=== PATIENT | male | born 1940 | race Caucasian/White ===

== ENCOUNTER 2020-09-15 12:58 | Inpatient (IN) | payer MEDICARE, OTHER, SELFPAY ==
[2020-09-15] VITALS (16 sets, daily range): BP systolic 108–147; BP diastolic 62–100; PULSE 77–107; RESP 13–20; TEMP 36–36.8; O2SAT 95–100; BMI 28.8
--- NOTE | ~2020-09-15 | CT_ITS ---
EXAMINATION: CT chest abdomen pelvis wo con DATE: 09/15/2020 17:46 INDICATION: Brain metastases. TECHNIQUE: Computed tomography (CT) of the chest, abdomen, and pelvis was performed without intraveno us contrast. Automated exposure control and iterative reconstruction technique were employed. The dos e-length product was 1312.69 mGy-cm. COMPARISON: None FINDINGS: CHEST CT: 2.5 cm spiculated mass in the right upper lobe. There are multiple pleural-based masses along the per iphery of the right lung the largest posteriorly at the right lower lobe measuring up to 8.6 x 4.7 cm . There are also bulky right hilar and mediastinal lymph nodes suspicious for metastatic disease. Mil d emphysema. No pneumonia. Small right pleural effusion. Heart size is normal. Aortic valve calcifica tion. Atherosclerotic coronary artery calcific a cyst. Tiny pericardial effusion. Thoracic aorta is n ormal in caliber. Multinodular goiter. There are bridging osteophytes at multiple levels in the lower thoracic spine, consistent with diffuse idiopathic skeletal hyperostosis (DISH). ABDOMEN/PELVIS CT: Subcentimeter hepatic cyst. Gallbladder, spleen and pancreas are normal. 4.7 x 4.8 cm mass with lobul ar margins which appears to arise from the upper pole of the left kidney. 9.8 x 8.5 similar mass with lobular margins arising from the lower pole of the right kidney with multiple enlarged lymph nodes e xtending inferiorly in the right retroperitoneal space along side the proximal right ureter which is likely obstructed with moderate to severe right hydronephrosis. 5.1 cm left renal cyst. Bowels includ ing the appendix are normal. Wall thickening of the partially decompressed bladder which may be relat ed to chronic outlet obstruction from the enlarged prostate. No free intraperitoneal gas or fluid. Sm all fat-containing left inguinal hernia. Mild degenerative skeletal changes in the spine and bilatera l hips. Likely bone island at the left acetabular region. IMPRESSION: 1. Spiculated mass in the right upper lobe with multiple pleural-based mass at the periphery of the r ight lung suspicious for primary prevention a carcinoma with pleural metastases. Consider CT-guided b iopsy of the largest pleural-based mass at the posterior right lower lobe. 2. Enlarged mediastinal and right hilar lymph nodes as well as large masses at both kidneys with cynthia cent right retroperitoneal lymphadenopathy also suspicious for metastatic disease. 3. Moderate to severe right hydronephrosis likely resulting from obstruction from the right renal mas s or associated retroperitoneal lymphadenopathy. 4. Small right pleural effusion. Reviewed, dictated and finalized at location A. RGLASS TECHNICIAN IMPRESSION: 1. Spiculated mass in the right upper lobe with multiple pleural-based mass at the periphery of the right lung suspicious for primary prevention a carcinoma w ith pleural metastases. Consider CT-guided biopsy of the largest pleural-based mass at the posterior right lower lobe. 2. Enlarged mediastinal and right hilar lymph nodes as well as large masses at both kidneys with adjacent right retroperitoneal lymphadenopathy also suspiciou s for metastatic disease. 3. Moderate to severe right hydronephrosis likely resulting from obstruction fr om the right renal mass or associated retroperitoneal lymphadenopathy. 4. Small right pleural effusion.
--- NOTE | ~2020-09-15 | CT_ITS ---
EXAMINATION: CT brain wo con DATE: 09/15/2020 16:31 INDICATION: Altered mental status post fall TECHNIQUE: Computed tomography (CT) of the head was performed without intravenous contrast. Sagittal and coronal reconstructions were performed. The mA was adjusted according to patient size. Iterative reconstruction technique was employed. The dose-length product was 605.33 mGy-cm. COMPARISON: None FINDINGS: There are multiple regions of vasogenic edema in the bilateral cerebral hemispheres and one in the ri ght cerebellar hemisphere. These appear to surround at least 6 centrally low attenuation lesions with peripheral thickened rim iso or slightly hyperdense to fraga matter. The largest lesion is in the rig ht frontal lobe measures up to 5.3 cm in maximal diameter. There appear to be at least 7 lesions in t he left frontal, temporal and parietal lobes the largest in the left frontal lobe measuring 2.5 cm in maximal diameter. There is local mass effect associated with each region most prominent in the left frontal lobe where there is effacement of the overlying sulci, a few millimeter of [id number] margie ation of the anterior falx and distortion of the orientation of the frontal lobes of both the left an d right lateral ventricles. No evident acute intracranial hemorrhage, acute infarction or abnormal ex tra axial fluid collection. Ventricles remain otherwise normal in size. The orbits, paranasal sinuses and mastoid air cells are normal. IMPRESSION: 1. Multiple scattered intra-axial likely centrally cystic masses with surrounding vasogenic edema. Th ere is concerning for metastatic disease with differential including less likely brain abscesses in t he appropriate clinical setting. Correlate clinically and would consider further evaluation with pre and postcontrast MRI. Reviewed, dictated and finalized at location A. RETTE VENDOR IMPRESSION: 1. Multiple scattered intra-axial likely centrally cystic masses with surroundi ng vasogenic edema. There is concerning for metastatic disease with differentia l including less likely brain abscesses in the appropriate clinical setting. Co rrelate clinically and would consider further evaluation with pre and postcontr ast MRI.
--- NOTE | 2020-09-15 13:05 | ECG_ITS ---
Measurements Intervals [place] Rate: 86 P: 15 HI: 160 QRS: 14 QRSD: 97 T: 84 QT: 357 QTc: 427 Interpretive Statements SINUS RHYTHM NONSPECIFIC ST & T-WAVE ABNORMALITY- HIGH LATERAL LEADS BASELINE ARTIFACT- I, II, V4-V5 BORDERLINE ECG Electronically Signed On 09-15-2020 13:38:50 ASSESSMENT MANAGER by Selvin De Santiago D.O.
[2020-09-15 13:27] LABS: Basophils Absolute Auto 0.1 K/mm3 (0.0-0.1); Basophils Percent Auto 0.6 % (0.2-1.2); Eosinophils Absolute Auto 0.3 K/mm3 (0-0.3); Eosinophils Percent Auto 2.6 % (0-4.4); Hematocrit 39.2 % (42.0-52.0); Hemoglobin 12.9 g/dL (14.0-18.0); Immature Granulocyte Absolute 0.03 K/mm3 (0.00-0.031); Immature Granulocyte Percent A 0.3 % (0-0.5); Lymphocytes Absolute Auto 1.36 K/mm3 (0.9-3.2); Lymphocytes Percent Auto 13.6 % (18.3-44.2); Mean Corpuscular HGB Conc 32.9 g/dl (32-36); Mean Corpuscular Hemoglobin 31.1 pg (26-34); Mean Corpuscular Volume 94.5 fl (80-100); Mean Platelet Volume 9.9 fl (7.4-10.4); Monocytes Percent Auto 9.5 % (2.6-8.5); Neutrophils Absolute Auto 7.3 K/mm3 (1.3-6.7); Neutrophils Percent Auto 73.4 % (45.5-73.1); Platelet Count Result 300 k/mm3 (150-375); Red Blood Count 4.15 M/mm3 (4.6-6.20); Red Cell Distribution Width 12.5 % (11.5-14.5)
[2020-09-15 13:39] LABS: Alanine Aminotransferase 22 U/L (4-50); Albumin Level 3.7 g/dL (3.5-5.1); Alkaline Phosphatase 126 U/L (38-126); Anion Gap 7 mmol/L (8-16); Aspartate Amino Transferase 35 U/L (17-59); Bilirubin,Total 0.5 mg/dL (0.2-1.3); Blood Urea Nitrogen 37 mg/dL (9-20); Calcium 8.8 mg/dL (8.4-10.2); Carbon Dioxide 26 mmol/L (22-30); Chloride 105 mmol/L (98-107); Estimated CRCL calculation 26 ml/min; Estimated Glomerular Filt Rate 29; Glucose 269 mg/dL (75-110); Potassium 4.5 mmol/L (3.4-5.0); Sodium 138 mmol/L (137-145)
--- NOTE | 2020-09-15 15:40 | ED.AMS ---
HPI - Altered Mental Status General Chief Complaint: Altered Mental Status Stated Complaint: AMS Time Seen by Provider: 09/15/20 15:40 History of Present Illness HPI narrative: 79 yo male w/ h/o htn, DM, CAD presents to the ED for confusion. His son reports that he has seen a drastic change in his memory and behavior over the past month. Prior to this time he was still working as a truck sales manager and taking care of himself independently. His son reports that he now has very poor memory. He frequently repeats the same questions. He does nt seem to be taking any of his medications. The patient says he does not have any complaints and does not recall any of this. Related Data Home Medications Medication Instructions Recorded Confirmed amlodipine 5 mg PO DAILY 09/15/20 atorvastatin 20 mg 09/15/20 clopidogrel 75 mg PO DAILY 09/15/20 finasteride 5 mg PO DAILY 09/15/20 glipizide 10 mg PO TID 09/15/20 lisinopril 40 mg PO DAILY 09/15/20 metoprolol tartrate 50 mg PO BID 09/15/20 Allergies Allergy/AdvReac Type Severity Reaction Status Date / Time Penicillins Allergy Unknown Verified 07/04/17 15:00 Review of Systems Review of Systems: All systems reviewed & are unremarkable except as noted in HPI and below Constitutional: Constitutional: Denies chills, Denies fever(s) and Denies weakness Cardiovascular: Cardiovascular: Denies chest pain Respiratory: Respiratory: Denies dyspnea Gastrointestinal: Gastrointestinal: Denies abdominal pain, Denies nausea and Denies vomiting Musculoskeletal: Musculoskeletal: Denies back pain Neurologic: Reports confusion, Denies dizziness, Denies headache(s), Denies numbness and Denies weakness PMFSH Past Medical History Medical History (Updated 09/15/20 @ 19:24 by Kenneth Cox MD) Enlarged prostate with lower urinary tract symptoms (LUTS) Stage III chronic kidney disease Type 2 diabetes mellitus without complication, with detention current use of insulin pump Social History Social History Smoking status: Never smoker Alcohol intake: never Exam Const: General: no acute distress, alert and confusion Nutritional Appearance: well nourished Orientation/consciousness: patient oriented x3 HENMT: Head: normal to inspection Eyes: Pupils: Equal, round and reactive pupils present EOM: EOMs intact bilaterally Resp: Effort & Inspection: normal respiratory effort Auscultation: clear to auscultation bilaterally Cardio: Rate: regular rate Rhythm: regular rhythm GI: GI Palp: Yes Soft to palpation and No Tenderness to palpation present (GI) Skin: General skin exam: normal color Rashes: no rashes Wounds: no wounds Neuro: General: patient oriented x3, moves all extremities and CN's II-XI intact bilaterally Speech: normal speech Other: Poor recall of recent events Extrem: General: normal to inspection Course Vital Signs Vital signs: Vital Signs Temperature 36.0 C L 09/15/20 13:02 Pulse Rate 88 09/15/20 13:02 Respiratory Rate 16 09/15/20 13:02 Blood Pressure 142/100 H 09/15/20 13:02 Pulse Oximetry 99 09/15/20 13:02 Temperature 36.6 C 09/15/20 15:12 Pulse Rate 107 H 09/15/20 17:47 Respiratory Rate 18 09/15/20 17:47 Blood Pressure 138/62 09/15/20 17:47 Pulse Oximetry 100 09/15/20 17:47 MDM - Altered Mental Status Differential Diagnosis Differential diagnosis: Likely delirium, dementia, sepsis and other (UTI) Medical Records Attestation: I reviewed the patient's medical records. Lab Data Attestation: I reviewed the patient's lab results. Result diagrams: 09/15/20 13:12 09/15/20 13:12 Labs: Lab Results 09/15/20 09/15/20 09/15/20 Range/Units 13:12 13:12 17:19 WBC 10.0 (4.5-10.0) K/mm3 RBC 4.15 L (4.6-6.20) M/mm3 Hgb 12.9 L (14.0-18.0) g/dL Hct 39.2 L (42.0-52.0) % MCV 94.5 (80-100) fl MCH 31.1 (26-34) pg MCHC 32.9 (32-36) g/dl RDW 12.5 (11.5-14.5)
[2020-09-15] MEDS: SODIUM CHLORIDE 0.9% IV 1,000 ML 999 ML IV CONT (16:43)
[2020-09-15 17:35] LABS: Add Urine Microscopic? YES; Appearance Urine Clear (Clear); Bacteria Urine Trace /hpf; Bilirubin Urine Negative (Negative); Blood Urine 2+ (Negative); Color Urine Yellow (Yellow); Glucose Urine UA 2+ mg/dL (Negative); Ketones Urine Negative (Negative); Leukocyte Esterase Ur Negative LEU/UL (Negative); Mucus Urine Rare /lpf; Nitrate Urine Negative (Negative); Protein Urine 2+ mg/dL (Negative); RBC Urine 51-75 /hpf (0-2); Specific Grav Ur 1.024 (1.001-1.035); Squamous Epithelial Cell Urine Rare /hpf (Few); WBC Urine 0-3 /hpf
--- NOTE | 2020-09-15 22:40 | ADMGEN ---
This patient, Dom Ferrer, was admitted to Medical Room 345-. Patient/family oriented to hospital policies and general routines including ID bracelet, bed and alarms, visiting hours, pain management, procedures, bathroom and other care routines, personal items, smoking policy, room service/diet, and visiting hours. Information on how to activate the Rapid Response Team has been discussed. Patient/Family are encouraged to report perceived risks to care and to ask questions if they do not understand what they are told or what they should do.
[2020-09-15] MEDS: LACTATED RINGERS 1,000 ML 75 ML IV CONT (22:57)
[2020-09-16 04:38] VITALS: BP 118/60; PULSE 88; RESP 16; TEMP 36.4; O2SAT 95
--- NOTE | 2020-09-16 05:02 | PM.IMHP ---
H&P: HPI History of Present Illness Date/Time: 09/16/20 03:45 Chief Complaint: Poor memory for 1 month Narrative: Dom Ferrer is a 79 year old male with a past medical history of hypertension, distant history of tobacco use, BPH, diabetes mellitus and coronary artery disease who presented to the ER from home via private vehicle for evaluation of poor memory for the last 3-4 weeks. Patient's son reported that the patient has had a drastic change in his memory and behavior over the past month. 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 She frequently repeats the same question and has not been taking any of his medications. The patient has no complaints at the time of my evaluation. When asked him why his family brought him to the ER he states ?they think I am losing my mind.? He does not think that he is having any difficulty with his memory. He denies any difficulty talking, visual changes, headache or other concerns. He does admit to having diabetes and high blood pressure but denies any other medical history. Source of information: ER records and patient report. The patient is not able to provide much history due difficulty recalling. Review of Systems Review of Systems: Narrative: 12 systems were reviewed with pertinent positives and negatives per HPI. Except as documented in the HPI, all other systems were reviewed and are negative. However the patient seems vague and some of his answers and has been reported to be forgetful lately. [facility] Past Medical History Medical History (Updated 09/16/20 @ 05:42 by Lise Burns DO) Coronary artery disease Enlarged prostate with lower urinary tract symptoms (LUTS) Hypertension Stage III chronic kidney disease Type 2 diabetes mellitus Surgical History Surgical History (Updated 09/16/20 @ 05:28 by Lise Burns DO) No pertinent past surgical history Family History Family History Mother , His mother when he was 3-year-old. He does not know his father's medical history. Unknown family medical history Social History Social History (Updated 09/16/20 @ 05:31 by Lise Burns DO) Social History: Of 55 years. 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 He smoked a pack cigarettes per day for about 20 years. He quit smoking 40 years ago. He denies any alcohol or illicit substance use. Primary care physician: Dr. Viktor Doyle Code status: Full code Smoking status: Former smoker Tobacco type: cigarettes Alcohol intake: never Substance use: never Living arrangements: with family Occupation/Education: retired Gender identity (if verbalized by the patient): Male Spiritual care concerns: No Meds Home Medications and Allergies Home Medications Medication Instructions Recorded Confirmed Type amlodipine 5 mg PO DAILY 09/15/20 09/15/20 History atorvastatin 20 mg PO HS 09/15/20 09/15/20 History clopidogrel 75 mg PO DAILY 09/15/20 09/15/20 History finasteride 5 mg PO DAILY 09/15/20 09/15/20 History glipizide 10 mg PO TID 09/15/20 09/15/20 History lisinopril 40 mg PO DAILY 09/15/20 09/15/20 History metoprolol tartrate 50 mg PO BID 09/15/20 09/15/20 History Allergies Allergy/AdvReac Type Severity Reaction Status Date / Time Penicillins Allergy Unknown Unknown Verified 09/15/20 23:18 Vital Signs Vital Signs - 24 hr 09/15/20 13:02 09/15/20 15:12 09/15/20 15:44 Temperature 96.8 F L 97.8 F Pulse Rate 88 78 78 Respiratory Rate 16 18 13 Blood Pressure 142/100 H 128/65 131/70 Pulse Oximetry 99 98 100 09/15/20 15:45 09/15/20 15:46 09/15/20 16:09 Temperature Pulse Rate 80 80 78 Respiratory Rate 19 14 20 Blood Pressure 131/70 Pulse Oximetry 98 100 100 09/15/20 16:15 09/15/20 16:36 09/15/20 16:52 Temperature Pulse Rate Respiratory Rate Blood Pressure Puls
[2020-09-16 06:26] LABS: Anion Gap 8 mmol/L (8-16); Blood Urea Nitrogen 33 mg/dL (9-20); Calcium 8.7 mg/dL (8.4-10.2); Carbon Dioxide 22 mmol/L (22-30); Chloride 108 mmol/L (98-107); Estimated CRCL calculation 28 ml/min; Estimated Glomerular Filt Rate 33; Glucose 224 mg/dL (75-110); Sodium 138 mmol/L (137-145)
[2020-09-16 06:47] LABS: Hemoglobin A1C 7.6 % (<5.7)
[2020-09-16 06:56] LABS: Glucose Point of Care 212 (65-105)
[2020-09-16 07:55] LABS: Glucose Point of Care 223 (65-105)
[2020-09-16] MEDS: glipiZIDE 5 MG TABLET 10 MG PO (08:07)
[2020-09-16 08:08] VITALS: PULSE 99
[2020-09-16] MEDS: METOPROLOL TARTRATE 50 MG TAB PO ×2 (08:08→20:15)
[2020-09-16] MEDS: amLODIPine BESYLATE 5 MG TABLET PO (08:08)
[2020-09-16] MEDS: FINASTERIDE 5 MG TABLET PO (08:08)
[2020-09-16] MEDS: INSULIN ASPART (*BKC) 100 UNITS/ML SUB-Q ×4 (08:10→16:50)
[2020-09-16] MEDS: DEXAMETHASONE SOD PHOS INJ 4 MG/ML VIAL IV PUSH ×3 (08:42→21:09)
[2020-09-16 08:47] VITALS: O2SAT 92
[2020-09-16 11:36] LABS: Glucose Point of Care 376 (65-105)
[2020-09-16 11:36] LABS: Glucose Point of Care 359 (65-105)
[2020-09-16 12:21] VITALS: BMI 28.8
--- NOTE | 2020-09-16 12:40 | WPDNEURCNPN ---
Assessment and Plan Assessment and plan (1) Grdfe-xa-lxisbsy kidney injury: Qualifiers: Acute renal failure type: unspecified Chronic kidney disease stage: stage 3 (moderate) Chronic kidney disease stage 3 subtype: stage 3a (GFR 45-59) Qualified Code(s): N17.9 - Acute kidney failure, unspecified; N18.31 - Chronic kidney disease, stage 3a Code(s): N17.9 - Acute kidney failure, unspecified; N18.9 - Chronic kidney disease, unspecified Status: Acute (2) Brain mass: Code(s): G93.89 - Other specified disorders of brain Status: Acute (3) Lung mass: Code(s): R91.8 - Other nonspecific abnormal finding of lung field Status: Acute (4) Bilateral renal masses: Code(s): N28.89 - Other specified disorders of kidney and ureter Status: Acute Additional Plan most likely metastatic disease will benefit from the MRI of the brain as well as the oncology consultation if the MRI confirms the findings and further management according do not see any reason of starting Decadron right now until seen by the oncologist Consult date: 09/16/20 Time Seen: 11:30 HPI: Dom Ferrer is a 79 year old male admitted to the hospital for the complaints of poor memory of 1 month duration in addition to the ongoing history of 1. Hypertension 2. Diabetes mellitus 3. Coronary artery disease 4. Distant history of tobacco use 5. Benign prostatic hypertrophy evaluation up until now included the routine lab with WBC 10.0 hemoglobin 12.9 platelet count 300 BMP normal with creatinine of 2.0 BUN of 33 blood sugar 224 UA abnormal, calcium 8.8 with total bilirubin 0.[address] of the head with multiple scattered intra-axial likely central cystic masses with surrounding vasogenic edema raising the possibility of the metastatic disease chest CT scan with spiculated mass in the right upper lobe with multiple pleural-based masses at the periphery of the right lung suspicious for the primary carcinoma of the lung versus a metastatic since in addition to enlarged mediastinal right hilar lymph nodes as well as large masses of both kidneys with adjacent right retroperitoneal lymphadenopathy again suspicious for the metastatic disease also noted moderate to severe right hydronephrosis possibly Review of Systems Review of Systems: All systems reviewed & are unremarkable except as noted in HPI and below PMFSH Past Medical History Medical History Coronary artery disease Enlarged prostate with lower urinary tract symptoms (LUTS) Hypertension Stage III chronic kidney disease Type 2 diabetes mellitus Surgical History Surgical History No pertinent past surgical history Family History Family History Mother , His mother when he was 3-year-old. He does not know his father's medical history. Unknown family medical history Social History Social History Social History: Of 55 years. 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 He smoked a pack cigarettes per day for about 20 years. He quit smoking 40 years ago. He denies any alcohol or illicit substance use. Primary care physician: Dr. Viktor Doyle Code status: Full code Smoking status: Former smoker Tobacco type: cigarettes Alcohol intake: never Substance use: never Living arrangements: with family Occupation/Education: retired Gender identity (if verbalized by the patient): Male Spiritual care concerns: No Meds Home Medications and Allergies Home Medications Medication Instructions Recorded Confirmed Type amlodipine 5 mg PO DAILY 09/15/20 09/15/20 History atorvastatin 20 mg PO HS 09/15/20 09/15/20 History clopidogrel 75 mg PO DAILY 09/15/20 09/15/20 History finasteride 5 mg PO DAILY 09/15/20 09/15/20 His
[2020-09-16 14:00] VITALS: BP 123/60; PULSE 52; RESP 16; TEMP 36.1; O2SAT 93
--- NOTE | 2020-09-16 14:59 | PM.IMPN ---
Progress Note: A&P Assessment and Plan (1) Brain mass: Code(s): G93.89 - Other specified disorders of brain Status: Acute Assessment and Plan: CT brain wo contrast read by radiology as multiple regions of vasogenic edema in the bilateral cerebral hemispheres and one in the right cerebellar hemisphere. These appear to surround at least 6 centrally low attenuation lesions with peripheral thickened rim iso or slightly hyperdense to fraga matter. The largest lesion is in the right frontal lobe measures up to 5.3 cm in maximal diameter. There appear to be at least 7 lesions in the left frontal, temporal and parietal lobes the largest in the left frontal lobe measuring 2.5 cm in maximal diameter. There is local mass effect associated with each region most prominent in the left frontal lobe where there is effacement of the overlying sulci, a few millimeter of [id number] deviation of the anterior falx and distortion of the orientation of the frontal lobes of both the left and right lateral ventricles. No evident acute intracranial hemorrhage, acute infarction or abnormal extra axial fluid collection. Ventricles remain otherwise normal in size. The orbits, paranasal sinuses and mastoid air cells are normal. Continue IV dexamethasone given vasogenic edema Add keppra for seizure prophylaxis. This was discussed with neurology. Monitor neuro status closely with Q4HR neuro checks Plan for transfer to tertiary care at [facility] for evaluation by neurosurgery, oncology, and radiation/oncology (2) Lung mass: Code(s): R91.8 - Other nonspecific abnormal finding of lung field Status: Acute Assessment and Plan: CT chest/abd/pelvis demonstrates 4.7x4.8cm mass with lobular margins at the upper pole of the left kidney, 9.8x8.5cm mass at the lower pole of the right kidney with retroperitoneal lymphadenopathy, 2.5cm spiculated mass of the right upper lobe, multiple pleural-based masses at the periphery of the right lung, and bulky hilar and mediastinal lymphadenopathy. CT brain demonstrates multiple cystic masses with surrounding vasogenic edema and concern for metastatic disease. The patient will require CT-guided biopsy of the large pleural based mass at the posterior right lower lobe. Will plan to have this at [facility] and he will be seen in conjugation by oncology there. Transfer is pending. (3) Bilateral renal masses: Code(s): N28.89 - Other specified disorders of kidney and ureter Status: Acute Assessment and Plan: CT chest/abd/pelvis demonstrates 4.7x4.8cm mass with lobular margins at the upper pole of the left kidney and 9.8x8.5cm mass at the lower pole of the right kidney with retroperitoneal lymphadenopathy, The patient has been accepted to [facility] for further evaluation and workup. Transfer is pending. (4) Asxnj-er-lxiksxy kidney injury: Qualifiers: Acute renal failure type: unspecified Chronic kidney disease stage: stage 3 (moderate) Chronic kidney disease stage 3 subtype: stage 3a (GFR 45-59) Qualified Code(s): N17.9 - Acute kidney failure, unspecified; N18.31 - Chronic kidney disease, stage 3a Code(s): N17.9 - Acute kidney failure, unspecified; N18.9 - Chronic kidney disease, unspecified Status: Acute Assessment and Plan: Creatinine is elevated above base. Cr was 1.4 on review of labs from 2017. This is likely secondary to bilateral renal masses and retroperitoneal lymphadenopathy causing obstruction and severe hydronephrosis. Hold GALINDO inhibitor Avoid nephrotoxins and renally dose medications Continue to monitor with CMP daily Avoid IV fluids for now given vasogenic edema on CT brain. He is tolerating p.o. intake well. Plan for oncology evaluation regarding renal masses (5) Type 2 diabetes mellitus: Qualifiers: Diabetes mellitus complication status: with hyperglycemia Diabetes mellitus roasterman insulin use: without chcf use Qu
[2020-09-16 16:49] LABS: Glucose Point of Care 376 (65-105)
[2020-09-16 20:05] VITALS: BP 128/54; PULSE 84; RESP 17; TEMP 36.8; O2SAT 96
[2020-09-16 20:15] VITALS: PULSE 84
[2020-09-16] MEDS: ATORVASTATIN 20 MG TABLET PO (20:15)
[2020-09-16] MEDS: levETIRAcetam 500 MG TABLET PO (20:15)
[2020-09-16] MEDS: INSULIN GLARGINE (*BKC) 100 UNITS/ML 10 UNITS SUB-Q (20:15)
[2020-09-16 21:07] LABS: Glucose Point of Care 299 (65-105)
[2020-09-16] MEDS: HEPARIN SODIUM 5,000 UNITS/ML VIAL 5000 UNITS SUB-Q (21:09)
[2020-09-17 04:58] VITALS: BP 130/55; PULSE 71; RESP 17; TEMP 36.4; O2SAT 98
[2020-09-17] MEDS: DEXAMETHASONE SOD PHOS INJ 4 MG/ML VIAL IV PUSH ×3 (05:06→20:52)
[2020-09-17] MEDS: levETIRAcetam 500 MG TABLET PO ×2 (08:05→20:53)
[2020-09-17 08:06] VITALS: PULSE 77
[2020-09-17] MEDS: METOPROLOL TARTRATE 50 MG TAB PO ×2 (08:06→20:52)
[2020-09-17] MEDS: FINASTERIDE 5 MG TABLET PO (08:06)
[2020-09-17] MEDS: HEPARIN SODIUM 5,000 UNITS/ML VIAL 5000 UNITS SUB-Q ×2 (08:06→20:53)
[2020-09-17] MEDS: amLODIPine BESYLATE 5 MG TABLET PO (08:06)
[2020-09-17] MEDS: INSULIN ASPART (*BKC) 100 UNITS/ML SUB-Q ×6 (08:09→17:30)
[2020-09-17 08:15] LABS: Glucose Point of Care 259 (65-105)
[2020-09-17 10:06] LABS: Basophils Percent Auto 0.1 % (0.2-1.2); Hematocrit 39.4 % (42.0-52.0); Hemoglobin 13.5 g/dL (14.0-18.0); Immature Granulocyte Absolute 0.11 K/mm3 (0.00-0.031); Immature Granulocyte Percent A 0.5 % (0-0.5); Lymphocytes Absolute Auto 0.99 K/mm3 (0.9-3.2); Lymphocytes Percent Auto 4.8 % (18.3-44.2); Mean Corpuscular HGB Conc 34.3 g/dl (32-36); Mean Corpuscular Volume 90.4 fl (80-100); Mean Platelet Volume 9.9 fl (7.4-10.4); Monocytes Absolute Auto 0.6 K/mm3 (0.1-0.6); Monocytes Percent Auto 2.9 % (2.6-8.5); Neutrophils Absolute Auto 18.8 K/mm3 (1.3-6.7); Neutrophils Percent Auto 91.7 % (45.5-73.1); Platelet Count Result 350 k/mm3 (150-375); Red Blood Count 4.36 M/mm3 (4.6-6.20); Red Cell Distribution Width 12.2 % (11.5-14.5); White Blood Count 20.6 K/mm3 (4.5-10.0)
--- NOTE | 2020-09-17 10:17 | PC.NURSE ---
Education given on importance of bed alarm to help prevent falls. Patient continues to get up without calling and states this is stupid those doctors don't know anything. I have walked by the room and noticed the alarm has been turned off. The patient has learned how to turn off the alarm on his bed. Continuing to monitor and give education despite patient not wanting to listen.
[2020-09-17 10:18] LABS: Alanine Aminotransferase 26 U/L (4-50); Albumin Level 3.7 g/dL (3.5-5.1); Alkaline Phosphatase 110 U/L (38-126); Anion Gap 10 mmol/L (8-16); Aspartate Amino Transferase 29 U/L (17-59); Bilirubin,Total 0.4 mg/dL (0.2-1.3); Blood Urea Nitrogen 37 mg/dL (9-20); Calcium 8.9 mg/dL (8.4-10.2); Carbon Dioxide 21 mmol/L (22-30); Chloride 106 mmol/L (98-107); Estimated CRCL calculation 28 ml/min; Estimated Glomerular Filt Rate 33; Glucose 254 mg/dL (75-110); Magnesium 1.9 mg/dL (1.6-2.3); Potassium 4.7 mmol/L (3.4-5.0); Sodium 137 mmol/L (137-145)
[2020-09-17 11:46] LABS: Glucose Point of Care 283 (65-105)
[2020-09-17 13:40] VITALS: BP 113/53; PULSE 71; RESP 18; TEMP 36.1; O2SAT 100
--- NOTE | 2020-09-17 14:49 | PM.IMPN ---
Progress Note: A&P Assessment and Plan (1) Brain mass: Code(s): G93.89 - Other specified disorders of brain Status: Acute Assessment and Plan: CT brain wo contrast read by radiology as multiple regions of vasogenic edema in the bilateral cerebral hemispheres and one in the right cerebellar hemisphere. These appear to surround at least 6 centrally low attenuation lesions with peripheral thickened rim iso or slightly hyperdense to fraga matter. The largest lesion is in the right frontal lobe measures up to 5.3 cm in maximal diameter. There appear to be at least 7 lesions in the left frontal, temporal and parietal lobes the largest in the left frontal lobe measuring 2.5 cm in maximal diameter. There is local mass effect associated with each region most prominent in the left frontal lobe where there is effacement of the overlying sulci, a few millimeter of tqjbs-ul-lzzv deviation of the anterior falx and distortion of the orientation of the frontal lobes of both the left and right lateral ventricles. No evident acute intracranial hemorrhage, acute infarction or abnormal extra axial fluid collection. Ventricles remain otherwise normal in size. The orbits, paranasal sinuses and mastoid air cells are normal. He has no gross neurologic deficits appreciated. Continue IV dexamethasone given vasogenic edema Continue keppra for seizure prophylaxis. This was discussed with neurology. Monitor neuro status closely with Q4HR neuro checks Plan for transfer to tertiary care at [facility] for evaluation by neurosurgery, oncology, and radiation/oncology (2) Lung mass: Code(s): R91.8 - Other nonspecific abnormal finding of lung field Status: Acute Assessment and Plan: CT chest/abd/pelvis demonstrates 4.7x4.8cm mass with lobular margins at the upper pole of the left kidney, 9.8x8.5cm mass at the lower pole of the right kidney with retroperitoneal lymphadenopathy, 2.5cm spiculated mass of the right upper lobe, multiple pleural-based masses at the periphery of the right lung, and bulky hilar and mediastinal lymphadenopathy. CT brain demonstrates multiple cystic masses with surrounding vasogenic edema and concern for metastatic disease. The patient will require CT-guided biopsy of the large pleural based mass at the posterior right lower lobe. Will plan to have this at [facility] and he will be seen in conjugation by oncology there. Transfer is pending. (3) Bilateral renal masses: Code(s): N28.89 - Other specified disorders of kidney and ureter Status: Acute Assessment and Plan: CT chest/abd/pelvis demonstrates 4.7x4.8cm mass with lobular margins at the upper pole of the left kidney and 9.8x8.5cm mass at the lower pole of the right kidney with retroperitoneal lymphadenopathy, The patient has been accepted to [facility] for further evaluation and workup. Transfer is pending. (4) Shlzu-xx-wabukib kidney injury: Qualifiers: Acute renal failure type: unspecified Chronic kidney disease stage: stage 3 (moderate) Chronic kidney disease stage 3 subtype: stage 3a (GFR 45-59) Qualified Code(s): N17.9 - Acute kidney failure, unspecified; N18.31 - Chronic kidney disease, stage 3a Code(s): N17.9 - Acute kidney failure, unspecified; N18.9 - Chronic kidney disease, unspecified Status: Acute Assessment and Plan: Creatinine is elevated above base. Cr was 1.4 on review of labs from 2017. This is likely secondary to bilateral renal masses and retroperitoneal lymphadenopathy causing obstruction and severe hydronephrosis. Hold GALINDO inhibitor Avoid nephrotoxins and renally dose medications Continue to monitor with CMP daily Avoid IV fluids for now given vasogenic edema on CT brain. He is tolerating p.o. intake well. Plan for oncology evaluation regarding renal masses (5) Type 2 diabetes mellitus: Qualifiers: Diabetes mellitus complication status: with hyperglycemia Diabetes me
[2020-09-17] MEDS: PANTOPRAZOLE 40 MG TABLET PO (14:58)
[2020-09-17 17:30] LABS: Glucose Point of Care 257 (65-105)
[2020-09-17 20:42] VITALS: BP 127/57; PULSE 75; RESP 17; TEMP 36.2; O2SAT 96
[2020-09-17 20:52] VITALS: PULSE 75
[2020-09-17] MEDS: ATORVASTATIN 20 MG TABLET PO (20:52)
[2020-09-17] MEDS: INSULIN GLARGINE (*BKC) 100 UNITS/ML 10 UNITS SUB-Q (20:53)
[2020-09-17 21:01] LABS: Glucose Point of Care 377 (65-105)
[2020-09-18 04:53] VITALS: BP 139/60; PULSE 76; RESP 18; TEMP 36.3; O2SAT 99
[2020-09-18] MEDS: DEXAMETHASONE SOD PHOS INJ 4 MG/ML VIAL IV PUSH ×3 (04:56→21:39)
[2020-09-18 07:50] LABS: Glucose Point of Care 267 (65-105)
[2020-09-18 08:11] VITALS: PULSE 70
[2020-09-18 08:11] LABS: Basophils Percent Auto 0.1 % (0.2-1.2); Hematocrit 38.2 % (42.0-52.0); Immature Granulocyte Absolute 0.12 K/mm3 (0.00-0.031); Immature Granulocyte Percent A 0.7 % (0-0.5); Lymphocytes Absolute Auto 0.79 K/mm3 (0.9-3.2); Lymphocytes Percent Auto 4.4 % (18.3-44.2); Mean Corpuscular Hemoglobin 31.3 pg (26-34); Mean Corpuscular Volume 91.8 fl (80-100); Mean Platelet Volume 9.9 fl (7.4-10.4); Monocytes Absolute Auto 0.6 K/mm3 (0.1-0.6); Monocytes Percent Auto 3.2 % (2.6-8.5); Neutrophils Absolute Auto 16.3 K/mm3 (1.3-6.7); Neutrophils Percent Auto 91.6 % (45.5-73.1); Platelet Count Result 306 k/mm3 (150-375); Red Blood Count 4.16 M/mm3 (4.6-6.20); Red Cell Distribution Width 12.4 % (11.5-14.5); White Blood Count 17.8 K/mm3 (4.5-10.0)
[2020-09-18] MEDS: METOPROLOL TARTRATE 50 MG TAB PO ×2 (08:11→20:29)
[2020-09-18] MEDS: PANTOPRAZOLE 40 MG TABLET PO (08:11)
[2020-09-18] MEDS: levETIRAcetam 500 MG TABLET PO ×2 (08:11→20:28)
[2020-09-18] MEDS: FINASTERIDE 5 MG TABLET PO (08:11)
[2020-09-18] MEDS: HEPARIN SODIUM 5,000 UNITS/ML VIAL 5000 UNITS SUB-Q ×2 (08:11→20:30)
[2020-09-18] MEDS: amLODIPine BESYLATE 5 MG TABLET PO (08:11)
[2020-09-18] MEDS: INSULIN GLARGINE (*BKC) 100 UNITS/ML 10 UNITS SUB-Q ×2 (08:14→20:32)
[2020-09-18] MEDS: INSULIN ASPART (*BKC) 100 UNITS/ML SUB-Q ×4 (08:15→17:05)
[2020-09-18 08:24] LABS: Albumin Level 3.4 g/dL (3.5-5.1); Anion Gap 4 mmol/L (8-16); Blood Urea Nitrogen 45 mg/dL (9-20); Calcium 8.8 mg/dL (8.4-10.2); Carbon Dioxide 25 mmol/L (22-30); Chloride 107 mmol/L (98-107); Estimated CRCL calculation 27 ml/min; Estimated Glomerular Filt Rate 31; Glucose 263 mg/dL (75-110); Phosphorus 3.2 mg/dL (2.5-4.5); Potassium 5.2 mmol/L (3.4-5.0); Sodium 136 mmol/L (137-145)
[2020-09-18 12:47] LABS: Glucose Point of Care 238 (65-105)
[2020-09-18 13:42] VITALS: BP 127/66; PULSE 68; RESP 18; TEMP 36.4; O2SAT 95
[2020-09-18 14:11] LABS: Glucose Point of Care 231 (65-105)
--- NOTE | 2020-09-18 14:50 | PM.IMPN ---
Progress Note: A&P Assessment and Plan (1) Brain mass: Code(s): G93.89 - Other specified disorders of brain Status: Acute Assessment and Plan: CT brain wo contrast read by radiology as multiple regions of vasogenic edema in the bilateral cerebral hemispheres and one in the right cerebellar hemisphere. These appear to surround at least 6 centrally low attenuation lesions with peripheral thickened rim iso or slightly hyperdense to fraga matter. The largest lesion is in the right frontal lobe measures up to 5.3 cm in maximal diameter. There appear to be at least 7 lesions in the left frontal, temporal and parietal lobes the largest in the left frontal lobe measuring 2.5 cm in maximal diameter. There is local mass effect associated with each region most prominent in the left frontal lobe where there is effacement of the overlying sulci, a few millimeter of austf-te-sutk deviation of the anterior falx and distortion of the orientation of the frontal lobes of both the left and right lateral ventricles. No evident acute intracranial hemorrhage, acute infarction or abnormal extra axial fluid collection. Ventricles remain otherwise normal in size. The orbits, paranasal sinuses and mastoid air cells are normal. Neuro status is stable with no deficits appreciated. Continue IV dexamethasone given vasogenic edema Continue keppra for seizure prophylaxis. This was discussed with neurology. Monitor neuro status closely with Q4HR neuro checks Plan for transfer to tertiary care at [facility] for evaluation by neurosurgery, oncology, and radiation/oncology (2) Lung mass: Code(s): R91.8 - Other nonspecific abnormal finding of lung field Status: Acute Assessment and Plan: CT chest/abd/pelvis demonstrates 4.7x4.8cm mass with lobular margins at the upper pole of the left kidney, 9.8x8.5cm mass at the lower pole of the right kidney with retroperitoneal lymphadenopathy, 2.5cm spiculated mass of the right upper lobe, multiple pleural-based masses at the periphery of the right lung, and bulky hilar and mediastinal lymphadenopathy. CT brain demonstrates multiple cystic masses with surrounding vasogenic edema and concern for metastatic disease. The patient will require CT-guided biopsy of the large pleural based mass at the posterior right lower lobe. Will plan to have this at [facility] and he will be seen in conjugation by oncology there. Transfer is pending. (3) Bilateral renal masses: Code(s): N28.89 - Other specified disorders of kidney and ureter Status: Acute Assessment and Plan: CT chest/abd/pelvis demonstrates 4.7x4.8cm mass with lobular margins at the upper pole of the left kidney and 9.8x8.5cm mass at the lower pole of the right kidney with retroperitoneal lymphadenopathy. The patient has been accepted to [facility] for further evaluation and workup. Transfer is pending. (4) Ifmdl-au-shmknvl kidney injury: Qualifiers: Acute renal failure type: unspecified Chronic kidney disease stage: stage 3 (moderate) Chronic kidney disease stage 3 subtype: stage 3a (GFR 45-59) Qualified Code(s): N17.9 - Acute kidney failure, unspecified; N18.31 - Chronic kidney disease, stage 3a Code(s): N17.9 - Acute kidney failure, unspecified; N18.9 - Chronic kidney disease, unspecified Status: Acute Assessment and Plan: Creatinine is elevated above base. Cr was 1.4 on review of labs from 2017. This is likely secondary to bilateral renal masses and retroperitoneal lymphadenopathy causing obstruction and severe hydronephrosis. Hold GALINDO inhibitor Avoid nephrotoxins and renally dose medications Continue to monitor with CMP daily Avoid IV fluids for now given vasogenic edema on CT brain. He is tolerating p.o. intake well. Plan for oncology evaluation regarding renal masses (5) Type 2 diabetes mellitus: Qualifiers: Diabetes mellitus intermediate manager insulin use: without mcfp use Di
[2020-09-18 17:03] LABS: Glucose Point of Care 259 (65-105)
[2020-09-18 19:57] VITALS: BP 119/63; PULSE 66; RESP 12; TEMP 36.1; O2SAT 100
[2020-09-18 20:29] VITALS: PULSE 76
[2020-09-18] MEDS: ATORVASTATIN 20 MG TABLET PO (20:29)
[2020-09-18 20:42] LABS: Glucose Point of Care 224 (65-105)
[2020-09-19] MEDS: DEXAMETHASONE SOD PHOS INJ 4 MG/ML VIAL IV PUSH (05:03)
[2020-09-19 05:38] VITALS: BP 129/59; PULSE 75; RESP 16; TEMP 36.2; O2SAT 100
[2020-09-19 06:21] LABS: Hematocrit 38.8 % (42.0-52.0); Mean Corpuscular HGB Conc 33.5 g/dl (32-36); Mean Corpuscular Hemoglobin 30.5 pg (26-34); Mean Corpuscular Volume 91.1 fl (80-100); Mean Platelet Volume 10.2 fl (7.4-10.4); Platelet Count Result 316 k/mm3 (150-375); Red Blood Count 4.26 M/mm3 (4.6-6.20); Red Cell Distribution Width 12.5 % (11.5-14.5); White Blood Count 15.7 K/mm3 (4.5-10.0)
[2020-09-19 06:33] LABS: Anion Gap 6 mmol/L (8-16); Blood Urea Nitrogen 46 mg/dL (9-20); Calcium 9.1 mg/dL (8.4-10.2); Carbon Dioxide 26 mmol/L (22-30); Chloride 107 mmol/L (98-107); Estimated CRCL calculation 28 ml/min; Estimated Glomerular Filt Rate 33; Glucose 212 mg/dL (75-110); Magnesium 1.9 mg/dL (1.6-2.3); Potassium 5.1 mmol/L (3.4-5.0); Sodium 139 mmol/L (137-145)
[2020-09-19] MEDS: INSULIN ASPART (*BKC) 100 UNITS/ML SUB-Q ×2 (09:37→09:38)
[2020-09-19] MEDS: HEPARIN SODIUM 5,000 UNITS/ML VIAL 5000 UNITS SUB-Q (09:39)
[2020-09-19] MEDS: PANTOPRAZOLE 40 MG TABLET PO (09:39)
[2020-09-19] MEDS: levETIRAcetam 500 MG TABLET PO (09:39)
[2020-09-19] MEDS: FINASTERIDE 5 MG TABLET PO (09:39)
[2020-09-19 09:40] VITALS: PULSE 75
[2020-09-19] MEDS: amLODIPine BESYLATE 5 MG TABLET PO (09:40)
[2020-09-19] MEDS: METOPROLOL TARTRATE 50 MG TAB PO (09:40)
[2020-09-19 10:19] LABS: Glucose Point of Care 226 (65-105)
--- NOTE | 2020-09-19 11:26 | PM.TDS ---
Transfer Discharge Sum: Prov Provider Date of admission: 09/15/20 19:24 Primary care physician: UNKNOWN,DOCTOR Admitting clinician: Lise Burns DO Consults: 09/16/20 Care Coordination Consult Routine Comment: Reason for Consult:: Advanced Directives Consult to Physician Routine Comment: Spoke with Dr. Loredo 0740 09/16/2020 Consulting Provider: Primo Loredo teacher physically impaired/MD group to consult: Dr. 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 Lozoya at 0738 09/16/2020 Consulting Provider: Martinez Lozoya teacher physically impaired/MD group to consult: Dr. Lozoya Primary bronchogenic carcinoma with brain masses Reason for consultation: As above Has provider been notified: Yes DS: Admitting Diagnosis Admitting Diagnosis Admitting Diagnosis: Lung, renal and brain masses; suspected metastatic disease DS: Discharge Diagnosis Discharge Diagnosis (1) Brain mass: Code(s): G93.89 - Other specified disorders of brain Status: Acute Assessment and Plan: CT brain wo contrast read by radiology as multiple regions of vasogenic edema in the bilateral cerebral hemispheres and one in the right cerebellar hemisphere. These appear to surround at least 6 centrally low attenuation lesions with peripheral thickened rim iso or slightly hyperdense to fraga matter. The largest lesion is in the right frontal lobe measures up to 5.3 cm in maximal diameter. There appear to be at least 7 lesions in the left frontal, temporal and parietal lobes the largest in the left frontal lobe measuring 2.5 cm in maximal diameter. There is local mass effect associated with each region most prominent in the left frontal lobe where there is effacement of the overlying sulci, a few millimeter of vtvbz-nh-vstg deviation of the anterior falx and distortion of the orientation of the frontal lobes of both the left and right lateral ventricles. No evident acute intracranial hemorrhage, acute infarction or abnormal extra axial fluid collection. Ventricles remain otherwise normal in size. The orbits, paranasal sinuses and mastoid air cells are normal. Neuro status is stable with no deficits appreciated. IV dexamethasone was continued given vasogenic edema and keppra was continued for seizure prophylaxis. He has been accepted to tertiary care at [facility] for evaluation by neurosurgery, oncology, and radiation/oncology. (2) Lung mass: Code(s): R91.8 - Other nonspecific abnormal finding of lung field Status: Acute Assessment and Plan: CT chest/abd/pelvis demonstrates 4.7x4.8cm mass with lobular margins at the upper pole of the left kidney, 9.8x8.5cm mass at the lower pole of the right kidney with retroperitoneal lymphadenopathy, 2.5cm spiculated mass of the right upper lobe, multiple pleural-based masses at the periphery of the right lung, and bulky hilar and mediastinal lymphadenopathy. CT brain demonstrates multiple cystic masses with surrounding vasogenic edema and concern for metastatic disease. The patient will require CT-guided biopsy of the large pleural based mass at the posterior right lower lobe. He has been accepted to tertiary care for further diagnostics. (3) Bilateral renal masses: Code(s): N28.89 - Other specified disorders of kidney and ureter Status: Acute Assessment and Plan: CT chest/abd/pelvis demonstrates 4.7x4.8cm mass with lobular margins at the upper pole of the left kidney and 9.8x8.5cm mass at the lower pole of the right kidney with retroperitoneal lymphadenopathy. The patient has been accepted to [facility] for further evaluation and workup. (4) Hcguo-jo-fmwjscp kidney injury: Qualifiers: Acute renal failure type: unspecified Chronic kidney disease stage: stage 3 (moderate)
--- NOTE | 2020-10-13 14:47 | PDONCCN ---
HPI - Date of Consult Date/Time: 10/13/20 14:47 Requesting Physician: Emelia Chiu PA-C Primary Care Provider: UNKNOWN,DOCTOR - Consult Narrative Reason for consult: Metastatic bronchogenic carcinoma Narrative: Dom Ferrer is a 80 year old male Review of Systems - Neurologic Reports confusion, Denies headache(s), Denies numbness, Denies weakness [facility] Medical History: Medical History (Last Updated 09/17/20 @ 15:46 by Emelia Chiu PA-C) Coronary artery disease Enlarged prostate with lower urinary tract symptoms (LUTS) Hyperlipidemia Hypertension Stage III chronic kidney disease Type 2 diabetes mellitus Surgical History: Surgical History (Last Reviewed 09/16/20 @ 12:45 by Martinez Lozoya MD) No pertinent past surgical history Family History: Family History (Last Reviewed 09/16/20 @ 12:45 by Martinez Lozoya MD) Mother , His mother when he was 3-year-old. He does not know his father's medical history. Unknown family medical history - Social History Social History: Social History (Last Reviewed 09/16/20 @ 12:45 by Martinez Lozoya MD) Gender Identity: Gender identity (if verbalized by the patient): Male Alcohol Use: Alcohol intake: never Substance Use: Substance use: never Others: Spiritual care concerns: No Smoking Status: Smoking status: Former smoker Tobacco type: cigarettes Approximate Smoking End Date: 1980 Smoking Pack-years: Smoking packs per day: 1 Smoking cigarettes per day: 20.0 Years smoked: 20 Smoking pack-years: 20.00 Meds Home Medications Medication Instructions Recorded Confirmed Type amlodipine 5 mg PO DAILY 09/15/20 09/28/20 History atorvastatin 20 mg PO HS 09/15/20 09/28/20 History finasteride 5 mg PO DAILY 09/15/20 09/28/20 History metoprolol tartrate 50 mg PO BID 09/15/20 09/28/20 History dexamethasone 2 mg PO BID 09/28/20 09/28/20 History insulin lispro 7 unit SUBCUT TID 09/28/20 09/28/20 History levetiracetam [Keppra] 500 mg PO BID 09/28/20 09/28/20 History Allergies Allergy/AdvReac Type Severity Reaction Status Date / Time Penicillins Allergy Unknown Unknown Verified 09/15/20 23:18 Results - Labs CBC & Chem 7: 09/19/20 06:00 09/19/20 06:00 Assessment and Plan - Additional Plan Metastatic bronchogenic carcinoma. Patient was transferred to [facility] before being seen.
== END 2020-09-19 12:33 | disposition short-term general hospital (02) | DRG 71 ==
LOC: ANHED 19:24 → ANH3MED 22:57
PROVIDERS: Admitting Provider Internal Medicine; Emergency Provider Emergency Medicine; Visit Provider Physician Assistant
DX: G93.89 Other specified disorders of brain (principal); N17.9 Acute kidney failure, unspecified; R91.8 Other nonspecific abnormal finding of lung field; N28.89 Other specified disorders of kidney and ureter; E11.65 Type 2 diabetes mellitus with hyperglycemia; E11.22 Type 2 diabetes mellitus with diabetic chronic kidney disease; I12.9 Hypertensive chronic kidney disease with stage 1 through stage 4 chronic kidney disease, or unspecified chronic kidney disease; N18.31 Chronic kidney disease, stage 3a; N40.1 Benign prostatic hyperplasia with lower urinary tract symptoms; I25.10 Atherosclerotic heart disease of native coronary artery without angina pectoris; E78.5 Hyperlipidemia, unspecified; E87.5 Hyperkalemia; Z79.84 Long term (current) use of oral hypoglycemic drugs; Z79.899 Other long term (current) drug therapy; Z87.891 Personal history of nicotine dependence; Z88.0 Allergy status to penicillin; Z95.5 Presence of coronary angioplasty implant and graft
CPT/HCPCS: 36415; 51701; 70450; 71250; 74176; 80048; 80053; 80069; 81001; 83036; 83735; 84132; 85025; 85027; 93005; 96361; 96374; 97161; 97165; 99285; A9270; J1100; J1644; J1815; J7030; J7120